=== PATIENT | male | born 1955 | race Caucasian/White ===

== ENCOUNTER 2022-07-25 10:57 | Day surgery (SDC) | payer MEDICARE, SELFPAY ==
[2022-07-25] VITALS (14 sets, daily range): BP systolic 127–154; BP diastolic 65–97; PULSE 66–78; RESP 16; TEMP 36.3–36.7; O2SAT 92–96; BMI 27.8
[2022-07-25] MEDS: LACTATED RINGERS 1000 ML 1,000 ML 100 ML IV (11:10)
[2022-07-25] MEDS: OXYMETAZOLINE 0.05% NASAL SPRAY 2 SPRAY NOSTRIL-B (11:45)
[2022-07-25] MEDS: SODIUM CHLORIDE 0.9 % (FLUSH) 10 ML SYRINGE IVF (11:46)
--- NOTE | 2022-07-25 13:43 | SUR.PREOP ---
Patient provided home covid negative results to RN.
[2022-07-25] MEDS: AYR SALINE NASAL GEL 1 APPLIC NOSTRIL-B (14:00)
[2022-07-25] MEDS: OXYMETAZOLINE (AFRIN) SOAK 1 EACH TOPICAL (14:00)
[2022-07-25] MEDS: BUPIVACAINE 0.5%/EPINEPHRINE 0.9 MG (30.9 ML) INJECTION (14:00)
[2022-07-25] MEDS: MUPIROCIN 1 GM PACKET 1 APPLIC TOPICAL (14:00)
[2022-07-25] MEDS: COCAINE HCL 4 % 4 ML SOLUTION NOSTRIL-B (14:00)
--- NOTE | 2022-07-25 14:18 | W.PM.ENTPROC ---
Procedure Note Date of procedure: 07/25/22 Procedure: The preop diagnosis right chronic ethmoid sinusitis nasal obstruction inferior turbinate hypertrophy Postoperative diagnosis same Procedure endoscopic right ethmoidectomy complete, submucous partial resection inferior turbinates Under general endotracheal anesthesia patient was prepped and draped in usual fashion. Image guidance was used for the sinus portion of the procedure as well as a 0 degree endoscope. The nose was decongested and injected. A stab incision was made in the anterior of the right inferior turbinate a very conservative anterior submucous resection was performed. The Coblation Wand was used then used to cauterize intramurally along the posterior inferior 10%. This was repeated on the left side in identical fashion. The ethmoid bulla was identified this was confirmed with image guidance. It was then opened with an ethmoid forceps and arm large amount of polypoid material removed from the ethmoid. The ethmoid was clean at end of procedure. A dissolvable [employer] packing was then placed patient opted well was taken recovery in satisfactory condition. Blood loss less than 10 mL 0 complications Surgeon: Ahsan Dickinson MD
--- NOTE | 2022-07-25 14:38 | W.ANESCHARGE ---
Anesthesia Charges Start Date/Time Anesthesia Start Date: 07/25/22 Anesthesia Start Time: 13:41 Stop Date/Time Anesthesia Stop Date: 07/25/22 Anesthesia Stop Time: 14:18 Summary Emergency: No
[2022-07-25] MEDS: OXYCODONE 5 MG TABLET PO (15:05)
== END 2022-07-25 15:46 | disposition home or self-care (01) ==
PROVIDERS: PCP Family Medicine; Visit Provider Otolaryngology
PROC: (CPT 31231; principal; 2022-07-25 12:15)
DX: J32.2 Chronic ethmoidal sinusitis (principal); J34.3 Hypertrophy of nasal turbinates; J34.89 Other specified disorders of nose and nasal sinuses
CPT/HCPCS: 31255; 30140; 00160; 88305; A9270; J0330; J1100; J2250; J2405; J2704; J3010; J7120

== ENCOUNTER 2025-03-24 08:22 | Day surgery (SDC) | payer MEDICARE, SELFPAY ==
[2025-03-24] VITALS (11 sets, daily range): BP systolic 141–169; BP diastolic 82–102; PULSE 59–69; RESP 14–18; TEMP 36.2–37; O2SAT 94–100; BMI 26.6
[2025-03-24] MEDS: SODIUM CHLORIDE 0.9 % (FLUSH) 10 ML SYRINGE IVF (09:00)
[2025-03-24] MEDS: LACTATED RINGERS 1000 ML 1,000 ML 100 ML IV (09:00)
[2025-03-24] MEDS: OXYMETAZOLINE 0.05% NASAL SPRAY 2 SPRAY NOSTRIL-B (09:00)
[2025-03-24] MEDS: BUPIVACAINE 0.5%/EPINEPHRINE 0.9 MG (30.9 ML) INJECTION (10:10)
[2025-03-24] MEDS: MUPIROCIN 1 GM PACKET 1 APPLIC TOPICAL (10:15)
[2025-03-24] MEDS: AYR SALINE NASAL GEL 1 APPLIC NOSTRIL-B (10:15)
--- NOTE | 2025-03-24 10:42 | P.ANES_ITS ---
Anesthesia Charges Start Date/Time Anesthesia Start Date: 03/24/25 Anesthesia Start Time: 09:49 Stop Date/Time Anesthesia Stop Date: 03/24/25 Anesthesia Stop Time: 10:41 Coding CPT Codes CPT Codes: ANESTH NOSE/SINUS SURGERY - 72043 ([id number]) P2 - PATIENT W/MILD SYST DISEASE, QK - TRASHMAN 2-4 CNCRNT ANES PROC, QX - BISCUIT PACKER SVC W/ MD MED DIRECTION
--- NOTE | 2025-03-24 10:42 | W.ANESCHARGE ---
Anesthesia Charges Start Date/Time Anesthesia Start Date: 03/24/25 Anesthesia Start Time: 09:49 Stop Date/Time Anesthesia Stop Date: 03/24/25 Anesthesia Stop Time: 10:41 Coding CPT Codes CPT Codes: ANESTH NOSE/SINUS SURGERY - 41111 ([id number]) P2 - PATIENT W/MILD SYST DISEASE, QK - WHEEL POLISHER 2-4 CNCRNT ANES PROC, QX - GIRLS TENNIS COACH SVC W/ MD MED DIRECTION
--- NOTE | 2025-03-24 10:54 | P.ANES_ITS ---
Anesthesia Charges Start Date/Time Anesthesia Start Date: 03/24/25 Anesthesia Start Time: 09:49 Stop Date/Time Anesthesia Stop Date: 03/24/25 Anesthesia Stop Time: 10:41 Coding CPT Codes CPT Codes: ANESTH NOSE/SINUS SURGERY - 27501 ([id number]) QK - ASSISTANT CUSTOMER SERVICE MANAGER 2-4 CNCRNT ANES PROC, QX - ROCK CRUSHER SVC W/ MD MED DIRECTION, P2 - PATIENT W/MILD SYST DISEASE
--- NOTE | 2025-03-24 10:54 | W.ANESCHARGE ---
Anesthesia Charges Start Date/Time Anesthesia Start Date: 03/24/25 Anesthesia Start Time: 09:49 Stop Date/Time Anesthesia Stop Date: 03/24/25 Anesthesia Stop Time: 10:41 Coding CPT Codes CPT Codes: ANESTH NOSE/SINUS SURGERY - 59445 ([id number]) QK - ORTHOPEDIC TECH 2-4 CNCRNT ANES PROC, QX - SMOKE INSPECTOR SVC W/ MD MED DIRECTION, P2 - PATIENT W/MILD SYST DISEASE
--- NOTE | 2025-03-24 11:55 | W.PM.ENTPROC ---
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 Note that image guidance and 0 degree endoscopy was used throughout the procedure Under general trach anesthesia patient was prepped and draped usual fashion and the image guidance system registered. The nose was decongested on the right side with cocaine pledgets and then the area near the a maxillary antrostomy region and the anterior head of the right middle turbinate were injected with the usual local solution. Utilizing image guidance the area of concern in the ethmoid was identified and a small amount of polypoid tissue was removed. He had recently taken steroids so presumably this was much smaller than usual. The opening into the maxillary sinus was partially occluded by polyp tissue this was removed and a moderate amount of polyp tissue removed from the maxillary sinus. A culture was obtained. The a 1.5 cm antrostomy was present. Dissolvable gel packing and embedded beneath that a small Merocel pack were placed. The patient procedure well was taken recovery in satisfactory condition blood loss was less than 10 mL. Surgeon: Ahsan Dickinson MD
== END 2025-03-24 12:06 | disposition home or self-care (01) ==
LOC: OR 08:24
PROVIDERS: PCP Family Medicine; Visit Provider Otolaryngology
PROC: (CPT 31231; principal; 2025-03-24 09:30)
DX: J32.0 Chronic maxillary sinusitis (principal); J32.2 Chronic ethmoidal sinusitis; J33.8 Other polyp of sinus
CPT/HCPCS: 31267; 31254; 00160; 87070; 87075; 87205; 88305; A9270; J1100; J2250; J2405; J2704; J3010; J7120